=== PATIENT | female | born 1945 | race Caucasian/White ===

== ENCOUNTER 2022-03-06 12:40 | Emergency (ER) | payer MEDICARE ==
[~2022-03-06] VITALS: Ht 162.6 cm; Wt 61.2 kg
--- OUTSIDE RECORDS SUMMARY | 2022-03-06 12:44 | XMS ---
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 [place] VISIT COUNT (12 MO.) 1 MANPREET Pardo TOTAL 1 NOTE: Visits indicate total known visits. ED/UCC VISIT TRACKING (12 MO.) 03/06/2022 12:[address] [facility] OR TYPE: Emergency COMPLAINT: - FALL, HEAD, TALL BONE, SPINE INJURY INPATIENT VISIT TRACKING (12 MO.) No inpatient visits to display in this time frame [email or web address]
[2022-03-06] MEDS ORDERED: EUTHYROX75 MCG PO (13:11)
[2022-03-06] MEDS ORDERED: GABAPENTIN300 MG PO (13:11)
[2022-03-06] MEDS ORDERED: VITAMIN D21250 MCG PO (13:11)
[2022-03-06] MEDS ORDERED: ESTRADIOL1 EAC6 TD (13:11)
[2022-03-06] MEDS ORDERED: HYDROCODON-ACE1 EA10 PO (15:08)
== END 2022-03-06 15:17 | disposition home or self-care (01) ==
LOC: ED 12:40
DX: S06.0X1A Concussion with loss of consciousness of 30 minutes or less, initial encounter (principal); S39.012A Strain of muscle, fascia and tendon of lower back, initial encounter; S30.0XXA Contusion of lower back and pelvis, initial encounter; Z79.899 Other long term (current) drug therapy; W22.8XXA Striking against or struck by other objects, initial encounter
CPT/HCPCS: 70450; 72125; 72131; 72192; 96372; 99284-25; J1885

== ENCOUNTER 2022-05-23 16:50 | Emergency (ER) | payer MEDICARE, OTHER ==
[~2022-05-23] VITALS: Ht 162.6 cm; Wt 61.2 kg
[~2022-05-23 16:50] MED LIST: ESTRADIOL1 EAC6 TD; EUTHYROX75 MCG PO; GABAPENTIN300 MG PO; HYDROCODON-ACE1 EA10 PO; VITAMIN D21250 MCG PO
[2022-05-23] MEDS ORDERED: NEURONTIN300 MG PO (18:26)
[2022-05-23] MEDS ORDERED: HYDROCODON-ACE1 EA10 PO (19:45)
== END 2022-05-23 20:05 | disposition home or self-care (01) ==
LOC: ED 16:50
DX: S83.91XA Sprain of unspecified site of right knee, initial encounter (principal); E03.9 Hypothyroidism, unspecified; Z79.899 Other long term (current) drug therapy; W01.0XXA Fall on same level from slipping, tripping and stumbling without subsequent striking against object, initial encounter
CPT/HCPCS: 73560; 99283-25; A9270

== ENCOUNTER 2022-12-15 07:15 | Day surgery (SDC) | payer MEDICARE, OTHER ==
[2022-12-14 15:22] VITALS: BP 128/71
[~2022-12-15] VITALS: Ht 162.6 cm; Wt 60.5 kg
[~2022-12-15 07:15] MED LIST changes: +NEURONTIN300 MG PO; +RELIEF FACTOR PO
[2022-12-15 07:47] VITALS: BP 117/62
--- NOTE | 2022-12-15 08:32 | NUR ---
UPDATED PATIENT THAT DR. AVILA IS GOING TO BE DELAYED DUE TO ANESTHESIA. PT STATED THAT SHE'S HAVING A NICE CONVERSATION WITH HER . NO ADDITIONAL NEEDS AT THIS TIME. CALL LIGHT WITHIN REACH.
--- NOTE | 2022-12-15 09:44 | NUR ---
PT IN BED. MIKO ACCOMANPIED. EXPRESSED POSITIVE OUTLOOK AND HOPE FOR SUCCESSFUL PROCEDURE. CHAPLAIN SOPHIE PRINCE.
[2022-12-15] MEDS ORDERED: CELECOXIB200 MG PO (11:01)
[2022-12-15] MEDS ORDERED: HYDROCODON-ACE1 EA10 PO (11:01)
--- NOTE | 2022-12-15 11:09 | NUR ---
12/15/22 1109 Jolly Carter 1056 PT TO PACU AWAKE RESTING WITH HER EYES CLOSED. SHE DENIES PAIN OR NAUSEA.
--- NOTE | 2022-12-15 11:31 | NUR ---
PATIENT BACK TO DAY SURGERY FROM PACU, STILL A BIT DROWSY. PROVIDED WATER AND CRACKERS. BED IN LOWEST POSITION AND CALL LIGHT IN PLACE. NO ADDITIONAL NEEDS AT THIS TIME. WILL ATTEMPT TO CALL AGAIN TO COME BACK TO ROOM.
[2022-12-15 11:45] VITALS: BP 103/46
--- NOTE | 2022-12-15 12:03 | NUR ---
INTO PT'S ROOM. PT REPORTS SHE IS COLD. WAAM BLANKET PROVIDED. PT REPORTS SHE WOULD LIKE SOMETHING FOR PAIN, BUT DOES NOT WANT THE NARCOTIC. DISCUSSED PAIN MEDICATION OPTIONS WITH PT. PT IS WILLING TO TAKE THE CELEBREX. PT'S NURSE NOTIFIED.
--- NOTE | 2022-12-15 12:24 | NUR ---
PATIENT IS HAVING 4/10 PAIN SO GAVE 200MG OF CELECOXIB. SHE THINKS SHE MIGHT BE READY TO GO HOME BUT HER HOUSE IS ON A [address] SO SHE IS GOING TO GIVE THE MEDICINE TIME TO TAKE EFFECT. CALL LIGHT WITHIN REACH, NO ADDITIONAL NEEDS AT THIS TIME.
[2022-12-15 12:35] VITALS: BP 114/57
--- NOTE | 2022-12-15 13:26 | NUR ---
PT REPORTS SHE IS READY TO GET DRESSED AND THEN WANTS TO USE THE RESTROOM. PT DISCONNECTED FROM SCD'S. PT GETTING DRESSED WITH ASSISTANCE FROM HER .
[2022-12-15 13:55] VITALS: BP 125/63
--- NOTE | 2022-12-15 13:59 | NUR ---
PT UP AND ABLE TO DRESS HERSELF, AMBULATES TO WHEELCHAIR. DC'D HOME WITH .
--- NOTE | 2022-12-16 10:32 | OR ---
[facility] [address], [place] [address] Signed DATE OF OPERATION: 12/15/2022 SURGEON: Kiki Carter MD PREOPERATIVE DIAGNOSIS: Medial meniscus tear, right knee. POSTOPERATIVE DIAGNOSIS: Medial meniscus tear, right knee. PROCEDURE PERFORMED: Right knee arthroscopy with partial medial meniscectomy. AIRCRAFT MANAGER: None. ANESTHESIA: General. BLOOD LOSS: Minimal. TOURNIQUET TIME: Zero. BRIEF HISTORY: Lisa is a 77-year-old female with pain and locking in her knee. MRI was consistent with the medial meniscus tear, mild chondromalacia. Risks and benefits of operative treatment were discussed with her and she elected to proceed. Once consent was obtained she was taken to the operating room. After adequate anesthesia she was placed on operating table. All downside pressure points well padded. The left leg was flexed, abducted and externally rotated on a well-padded leg coleman. The right was placed in well-padded leg coleman and flexed and extended in leg coleman. Once the leg was prepped and draped in a standard sterile fashion the portal sites were injected with 0.25% Marcaine with epinephrine under alcohol prep. The standard inferolateral and superolateral portals were made. The scope was introduced into the knee. On examine under anesthesia initially, the leg was noted to not flex. Once the patient was asleep due to gravity. She remained about 20 degrees. However, on passive range of motion, I could range her knee to 125 degrees of flexion and zero extension. When you do flex her knee, the hip also flexes indicating significant tightness in the quads. On further Electronically Signed By: KIKI CARTER MD 12/16/22 1032 PATIENT NAME: LISA BONILLA OPERATIVE REPORT DATE OF : 47 REPORT #: [id number] PHYSICIAN: KIKI CARTER MD PCP: DOMINGA RICH PA-C REPORT IS CONFIDENTIAL AND NOT TO BE RELEASED WITHOUT AUTHORIZATION [facility] [address], [place] [address] Signed palpation, she does have a fullness or mass in the proximal quad centrally. This is different than her opposite side. The scope was introduced in the knee after the exam under anesthesia and the diagnostic arthroscopy was undertaken. ARTHROSCOPIC FINDINGS: Significant synovitis was noted throughout the knee. 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 Medial and lateral gutters were clear. The patella tracked well. Medial compartment showed grade 3 chondromalacia pretty much throughout with one area of grade 4 in the medial femoral condyle. There was a complex tear posterior medially. The lateral compartment was extremely tight and very difficult to enter. Debridement of the anterior soft tissues allowed us to enter the compartment which showed minimal chondromalacia. The meniscus appeared to be intact. The ACL and PCL were intact. DESCRIPTION OF OPERATION: Standard inferomedial portal was made after localization using a spinal needle and the straight and curved biters were used to trim the meniscus tear back to a stable rim. All debris was evacuated. The meniscus tear was smoothed and feathered out. The chondral flaps on the medial femoral condyle were debrided to a smooth feathered surface as well. The scope was then withdrawn. Portals were closed with 3-0 nylon and dressed with Adaptic, ABD, and Dwayne wrap. She tolerated the procedure well. All sponge, needle, and instrument counts were correct. Kiki Carter MD BA/TORINL /[id number] Copies: ~ Electronically Signed By: KIKI CARTER MD 12/16/22 1032 PATIENT NAME: LISA BONILLA OPERATIVE REPORT DATE OF : 47 REPORT #: [id number] PHYSICIAN: KIKI CARTER MD PCP: DOMINGA RICH PA-C REPORT IS CONFIDENTIAL AND NOT TO BE RELEASED WITHOUT AUTHORIZATION
== END 2022-12-15 13:45 | disposition home or self-care (01) ==
LOC: DS 07:15
PROVIDERS: ATTEND Specialist
PROC: 0SBC4ZZ Excision of Right Knee Joint, Percutaneous Endoscopic Approach (ICD-10-PCS; principal; 2022-12-15 09:15)
DX: S83.241A Other tear of medial meniscus, current injury, right knee, initial encounter (principal); Z85.9 Personal history of malignant neoplasm, unspecified
CPT/HCPCS: 01400; J0131; J0690; J1100; J1885; J2001; J2405; J2704; J3010; J7121